=== PATIENT | female | born 1990 | race Caucasian/White ===

== ENCOUNTER 2021-05-08 20:05 | Emergency (ER) | payer OTHER ==
[~2021-05-08] VITALS: Ht 170.2 cm; Wt 63.5 kg
[~2021-05-08 20:05] MED LIST: BENTYL; EPIPEN0.3 MG/0.3 IM; EPITOL; PAXIL 20 MG TAB20 M1; POTASSIUM20 PO; XANAX
[2021-05-08] MEDS ORDERED: CLARITIN10 M3 PO (20:19)
[2021-05-08] MEDS ORDERED: PROAIR HFA8.5 GM INH ×2 (20:19→20:20)
[2021-05-08] MEDS ORDERED: MAGNESIUM250 M1 PO (20:20)
[2021-05-08] MEDS ORDERED: SUPER THERAVIT1 EACH PO (20:20)
[2021-05-08] MEDS ORDERED: TESSALON PERLE100 MG PO ×2 (20:51→20:59)
[2021-05-08] MEDS ORDERED: ONDANSETRON ODT4 MG PO ×2 (20:51→21:00)
[2021-05-08] MEDS ORDERED: LOPERAMIDE 2 MG2 M1 PO (20:51)
[2021-05-08] MEDS ORDERED: PROMETHAZI6.25 MG/5 PO ×2 (20:51→20:59)
[2021-05-08 20:55] VITALS: BP 118/70
== END 2021-05-08 20:56 | disposition home or self-care (01) ==
LOC: M.ERS 20:05
DX: J06.9 Acute upper respiratory infection, unspecified (principal); Z20.822 Contact with and (suspected) exposure to COVID-19; J45.909 Unspecified asthma, uncomplicated; Z88.5 Allergy status to narcotic agent; Z88.0 Allergy status to penicillin; Z88.6 Allergy status to analgesic agent; Z88.1 Allergy status to other antibiotic agents; Z91.012 Allergy to eggs; Z91.040 Latex allergy status